=== PATIENT | male | born 1995 | race African-American/Black ===

== ENCOUNTER 2022-07-28 14:00 | Outpatient (CLI) | payer OTHER ==
[2022-07-28 23:39] LABS: CHLAMYDIA TRACHOMATIS DNA POSITIVE (NEGATIVE); NEISSERIA GONORRHOEAE DNA NEGATIVE (NEGATIVE)
== END 2022-07-28 14:15 | disposition home or self-care (01) ==
LOC: LAB.N 14:00
PROVIDERS: ATTEND Family Medicine
DX: Z20.2 Contact with and (suspected) exposure to infections with a predominantly sexual mode of transmission (principal)
CPT/HCPCS: 87491; 87591; 87661